=== PATIENT | female | born 1965 | race Caucasian/White ===

== ENCOUNTER 2019-08-17 07:36 | Day surgery (SDC) | payer BC ==
[2019-08-17] MEDS ORDERED: Lidocaine 1% with EPINEPHrine 1:100,000 10 ML MDV ONE (07:41)
[2019-08-17] MEDS ORDERED: Lactated Ringers 1,000 ML IV SCH (08:00)
--- NOTE | 2019-08-17 08:43 | PCM.PREANE ---
Preanesthetic Assessment - Anesthesia/Transfusion/Family Hx Anesthesia History: Prior Anesthesia Without Reaction Other Type of Anesthesia Reaction Comment: Deneis any known problems in past Family History of Anesthesia Reaction: No Transfusion History: No Prior Transfusion(s) Intubation History: Unknown - Review of Systems General: No Symptoms Pulmonary: No Symptoms Cardiovascular: No Symptoms Gastrointestinal: No Symptoms Neurological: No Symptoms Other: Reports: None - Physical Assessment Vital Signs: Last Vital Signs Temp 36.1 C 08/17/19 08:00 Pulse 76 08/17/19 08:00 Resp 16 08/17/19 08:00 BP 141/89 H 08/17/19 08:00 Pulse Ox 97 08/17/19 08:00 Height: 5 ft 4 in Weight: 73.936 kg ASA Class: 2 Mental Status: Alert & Oriented x3 Airway Class: Mallampati = 2 Dentition: Reports: Normal Dentition, Broken Tooth/Teeth (front upper incisor chipped) Thyro-Mental Finger Breadths: 3 Mouth Opening Finger Breadths: 2 ROM/Head Extension: Full Lungs: Clear to Auscultation, Normal Respiratory Effort Cardiovascular: Regular Rate, Regular Rhythm - Lab Values: Laboratory Last Values Urine HCG, Qual NEGATIVE (NEGATIVE) 08/17/19 08:00 - Allergies Allergies/Adverse Reactions: Allergies Allergy/AdvReac Type Severity Reaction Status Date / Time sulfamethoxazole Allergy Hives Verified 08/14/19 08:39 trimethoprim [From ] Allergy Hives Verified 08/14/19 08:39 - Blood Blood Available: No - Anesthesia Plan Pre-Op Medication Ordered: None - Acknowledgements Anesthesia Type Planned: MAC Pt an Appropriate Candidate for the Planned Anesthesia: Yes Alternatives and Risks of Anesthesia Discussed w Pt/Guardian: Yes Pt/Guardian Understands and Agrees with Anesthesia Plan: Yes PreAnesthesia Questionnaire HEENT History: Reports: None Cardiovascular History: Reports: Hypertension, Other (See Below) (borderline hypertrycerides) Respiratory History: Reports: None Gastrointestinal History: Reports: Colon Polyp Genitourinary History: Reports: None [employer]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 ulnar neuropathy) Psychiatric History: Reports: Other (See Below) Other Psychiatric History: "some anxiety at present" "going throught divorce" Endocrine/Metabolic History: Reports: Other (See Below) Other Endocrine/Metabolic History: hx: thyroid nodule Hematologic History: Reports: None Immunologic History: Reports: None Oncologic (Cancer) History: Reports: None Dermatologic History: Reports: None - Past Surgical History Head Surgeries/Procedures: Reports: None HEENT Surgical History: Reports: Tonsillectomy Cardiovascular Surgical History: Reports: None Respiratory Surgical History: Reports: None GI Surgical History: Reports: Colonoscopy Female Surgical History: Reports: Section Endocrine Surgical History: Reports: None Neurological Surgical History: Reports: None Musculoskeletal Surgical History: Reports: None Oncologic Surgical History: Reports: None Dermatological Surgical History: Reports: None - SUBSTANCE USE Smoking Status *Q: Never Smoker - HOME MEDS Home Medications: Home Meds Losartan Potassium 50 mg PO DAILY 08/14/19 [History] - CURRENT (IN HOUSE) MEDS Current Meds: Current Medications Lactated Ringer's (Ringers, Lactated) 1,000 mls @ 100 mls/hr IV ASDIRECTED [facility] Last Admin: 08/17/19 08:21 Dose: 100 mls/hr Discontinued Medications Lidocaine/Epinephrine (Xylocaine 1% With Epinephrine 1:100,000) Confirm Administered Dose 10 ml .ROUTE .STK-MED ONE Stop: 08/17/19 07:42
[2019-08-17] MEDS ORDERED: fentaNYL 100 MCG/2 ML SDV ONE (09:10)
[2019-08-17] MEDS ORDERED: Propofol 200 MG/20 ML SDV ONE (09:10)
[2019-08-17] MEDS ORDERED: Lidocaine 2% 5 ML SDV ONE (09:10)
[2019-08-17] MEDS ORDERED: Midazolam 1 MG/ML 2 ML SDV ONE (09:11)
[2019-08-17] MEDS ORDERED: Metoclopramide 10 MG/2 ML SDV ONE (09:32)
[2019-08-17] MEDS ORDERED: Dexamethasone 4 MG/ML 5 ML MDV ONE (09:32)
[2019-08-17] MEDS ORDERED: Ondansetron 4 MG/2 ML SDV ONE (09:32)
[2019-08-17] MEDS ORDERED: Ketorolac 30 MG/ML SDV ONE (09:43)
--- NOTE | 2019-08-17 10:03 | PCM.OPNOTE ---
- General Post-Op/Procedure Note Date of Surgery/Procedure: 08/17/19 Operative Procedure(s): Leep Pre Op Diagnosis: ASCUS Post-Op Diagnosis: Same Anesthesia Technique: General LMA Primary Surgeon: Merlin Stone EBL in mLs: 10 Complications: None Condition: Good
--- NOTE | 2019-08-17 10:03 | PCM.DCSUM1 ---
Discharge Summary - Hospital Course Diagnosis: Stroke: No - Discharge Data Discharge Date: 08/17/19 Discharge Disposition: Home, Self-Care 01 Condition: Good - Referral to Home Health Primary Care Physician: VICTOR HUGO Cantor - Patient Summary/Data Operative Procedure(s) Performed: Leep - Patient Instructions Diet: Usual Diet as Tolerated Activity: As Tolerated Driving: Do Not Drive Showering/Bathing: May Shower - Discharge Plan Home Medications: Home Meds Losartan Potassium 50 mg PO DAILY 08/14/19 [History] - Discharge Summary/Plan Comment DC Time >30 min.: Yes - General Info Date of Service: 08/17/19 Functional Status: Reports: Pain Controlled - Review of Systems General: Reports: No Symptoms HEENT: Reports: No Symptoms Pulmonary: Reports: No Symptoms Cardiovascular: Reports: No Symptoms Gastrointestinal: Reports: No Symptoms Genitourinary: Reports: No Symptoms Musculoskeletal: Reports: No Symptoms Skin: Reports: No Symptoms Neurological: Reports: No Symptoms Psychiatric: Reports: No Symptoms - Patient Data Vitals - Most Recent: Last Vital Signs Temp 36.1 C 08/17/19 08:00 Pulse 76 08/17/19 08:00 Resp 16 08/17/19 08:00 BP 141/89 H 08/17/19 08:00 Pulse Ox 97 08/17/19 08:00 Weight - Most Recent: 73.936 kg Lab Results - Last 24 hrs: Laboratory Results - last 24 hr 08/17/19 Range/Units 08:00 Urine HCG, Qual NEGATIVE (NEGATIVE) Med Orders - Current: Current Medications Lactated Ringer's (Ringers, Lactated) 1,000 mls @ 100 mls/hr IV ASDIRECTED [facility] Last Admin: 08/17/19 08:21 Dose: 100 mls/hr Discontinued Medications Dexamethasone (Dexamethasone) Confirm Administered Dose 20 mg .ROUTE .STK-MED ONE Stop: 08/17/19 09:33 Fentanyl (Sublimaze) Confirm Administered Dose 100 mcg .ROUTE .STK-MED ONE Stop: 08/17/19 09:11 Ketorolac Tromethamine (Toradol) Confirm Administered Dose 30 mg .ROUTE .STK- MED ONE Stop: 08/17/19 09:44 Lidocaine (Xylocaine-Mpf 2%) Confirm Administered Dose 5 ml .ROUTE .STK-MED ONE Stop: 08/17/19 09:11 Lidocaine/Epinephrine (Xylocaine 1% With Epinephrine 1:100,000) Confirm Administered Dose 10 ml .ROUTE .STK-MED ONE Stop: 08/17/19 07:42 Metoclopramide HCl (Reglan) Confirm Administered Dose 10 mg .ROUTE .STK-MED ONE Stop: 08/17/19 09:33 Midazolam HCl (Versed 1 Mg/Ml) Confirm Administered Dose 2 mg .ROUTE .STK-MED ONE Stop: 08/17/19 09:12 Ondansetron HCl (Zofran) Confirm Administered Dose 4 mg .ROUTE .STK-MED ONE Stop: 08/17/19 09:33 Propofol (Diprivan 20 Ml) Confirm Administered Dose 200 mg .ROUTE .STK-MED ONE Stop: 08/17/19 09:11 - Exam General: Reports: Alert, Oriented HEENT: Reports: Pupils Equal, Pupils Reactive, EOMI, Mucous Membr. Moist/Myrtle Neck: Reports: Supple Lungs: Reports: Clear to Auscultation, Normal Respiratory Effort Cardiovascular: Reports: Regular Rate, Regular Rhythm GI/Abdominal Exam: Normal Bowel Sounds, Soft, Non-Tender, No Organomegaly, No Distention, No Abnormal Bruit, No Mass, Pelvis Stable (Female) Exam: Normal External Exam, Normal Speculum Exam, Normal Bimanual Exam Rectal (Female) Exam: Normal Exam, Normal Rectal Tone Back Exam: Reports: Normal Inspection, Full Range of Motion Extremities: Normal Inspection, Normal Range of Motion, Non-Tender, No Pedal Edema, Normal Capillary Refill Skin: Reports: Warm, Dry, Intact Wound/Incisions: Reports: Healing Well Neurological: Reports: No New Focal Deficit Psy/Mental Status: Reports: Alert, Normal Affect, Normal Mood
--- NOTE | 2019-08-17 10:14 | PCM.POSTAN ---
POST ANESTHESIA ASSESSMENT - MENTAL STATUS Mental Status: Alert, Oriented - VITAL SIGNS Vital Signs: Last Vital Signs Temp 36.1 C 08/17/19 09:58 Pulse 79 08/17/19 10:10 Resp 10 L 08/17/19 10:10 BP 104/66 08/17/19 10:10 Pulse Ox 97 08/17/19 10:10 - RESPIRATORY Respiratory Status: Respiratory Rate WNL, Airway Patent, O2 Saturation Stable - CARDIOVASCULAR CV Status: Pulse Rate WNL, Blood Pressure Stable - GASTROINTESTINAL GI Status: No Symptoms - PAIN Pain Score: 0 - POST OP HYDRATION Hydration Status: Adequate & Stable
[2019-08-17 10:53] VITALS: PULSE 62
[2019-08-17 11:32] VITALS: BP 105/70
--- NOTE | 2019-08-17 11:36 | PCM48HPAN ---
Post Anesthesia Note - EVALUATION WITHIN 48HRS OF ANESTHETIC Vital Signs in Normal Range: Yes Patient Participated in Evaluation: Yes Respiratory Function Stable: Yes Airway Patent: Yes Cardiovascular Function Stable: Yes Hydration Status Stable: Yes Pain Control Satisfactory: Yes Nausea and Vomiting Control Satisfactory: Yes Mental Status Recovered: Yes Vital Signs: Last Vital Signs Temp 36.1 C 08/17/19 10:25 Pulse 62 08/17/19 11:10 Resp 18 08/17/19 11:10 BP 105/70 08/17/19 11:10 Pulse Ox 97 08/17/19 11:10 - COMMENTS/OBSERVATIONS Free Text/Narrative:: no anesthesia problems
--- NOTE | 2019-08-17 12:21 | OR ---
SURGEON: Merlin Stone MD DATE OF PROCEDURE: PREOPERATIVE DIAGNOSIS: Atypical squamous cells of undetermined significance with high-grade virus. POSTOPERATIVE DIAGNOSIS: Atypical squamous cells of undetermined significance with high-grade virus. OPERATION PERFORMED: Loop electrosurgical excision procedure, conization of the cervix. PRIMARY SURGEON: Merlin Stone MD. TIRE SPOTTER: None. ANESTHESIA: LMA, Carmita Harris and Dr. Gavin. ESTIMATED BLOOD LOSS: Less than 10 mL. COMPLICATIONS: None. PROCEDURE IN DETAIL: The patient was brought to the OR, properly identified. After adequate level of anesthesia, the patient was placed in lithotomy position, prepped and draped in sterile fashion as usual. Then, weighted speculum was placed in the vagina. An Allis clamp applied to the cervix at 3 and 9 o'clock to block the descending branch of the uterine artery and the cervix infiltrated with 1% Xylocaine with epi, and after that using a loop excision, cone biopsy is performed and sent for pathology and the base of the cone was cauterized with a ball cautery. The patient tolerated the procedure well, went to recovery room in stable general condition. ANDREW / LEYDI /[id number]
== END 2019-08-17 11:25 | disposition home or self-care (01) ==
LOC: MW.SDS 07:36
PROVIDERS: ATTEND Obstetrics & Gynecology
DX: N87.0 Mild cervical dysplasia (principal); I10 Essential (primary) hypertension; F41.9 Anxiety disorder, unspecified; Z88.2 Allergy status to sulfonamides; Z88.1 Allergy status to other antibiotic agents
CPT/HCPCS: 57522; 81025; J1100; J1885; J2001; J2250; J2405; J2704; J2765; J3010; J7120; 00940

== ENCOUNTER 2020-08-21 06:48 | Day surgery (SDC) | payer BC ==
[~2020-08-21 06:48] MED LIST: Lactated Ringers 1,000 ML IV SCH
[2020-08-21] MEDS ORDERED: fentaNYL 100 MCG/2 ML SDV ONE (07:02)
[2020-08-21] MEDS ORDERED: Midazolam 1 MG/ML 2 ML SDV ONE (07:02)
[2020-08-21] MEDS ORDERED: Propofol 200 MG/20 ML SDV ONE ×2 (07:02→09:11)
--- NOTE | 2020-08-21 07:34 | PCM.PREANE ---
Preanesthetic Assessment - Anesthesia/Transfusion/Family Hx Anesthesia History: Prior Anesthesia Without Reaction Other Type of Anesthesia Reaction Comment: Deneis any known problems in past Family History of Anesthesia Reaction: No Transfusion History: No Prior Transfusion(s) Intubation History: Unknown - Review of Systems General: No Symptoms Pulmonary: No Symptoms Cardiovascular: No Symptoms Gastrointestinal: No Symptoms, Other (family h/o colon cancer, personal h/o multiple polyps) Neurological: No Symptoms Other: Reports: None - Physical Assessment Height: 5 ft 4 in Weight: 69.853 kg ASA Class: 2 Mental Status: Alert & Oriented x3 Airway Class: Mallampati = 2 Dentition: Reports: Normal Dentition (loose tooth x1 bottom front, periodontal disease) Thyro-Mental Finger Breadths: 3 Mouth Opening Finger Breadths: 2 ROM/Head Extension: Full Lungs: Clear to Auscultation, Normal Respiratory Effort Cardiovascular: Regular Rate, Regular Rhythm - Allergies Allergies/Adverse Reactions: Allergies Allergy/AdvReac Type Severity Reaction Status Date / Time sulfamethoxazole Allergy Hives Verified 08/15/20 11:16 trimethoprim [From ] Allergy Hives Verified 08/15/20 11:16 - Blood Blood Available: No - Anesthesia Plan Pre-Op Medication Ordered: None - Acknowledgements Anesthesia Type Planned: MAC Pt an Appropriate Candidate for the Planned Anesthesia: Yes Alternatives and Risks of Anesthesia Discussed w Pt/Guardian: Yes Pt/Guardian Understands and Agrees with Anesthesia Plan: Yes PreAnesthesia Questionnaire HEENT History: Reports: None Cardiovascular History: Reports: High Cholesterol, Hypertension Respiratory History: Reports: None Gastrointestinal History: Reports: Colon Polyp (2010 6 polyps, 2014 no polyps) Genitourinary History: Reports: None [employer]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: Musculoskeletal History: Reports: None Neurological History: Reports: None Psychiatric History: Reports: Anxiety, Depression Endocrine/Metabolic History: Reports: Other (See Below) Other Endocrine/Metabolic History: hx: thyroid nodule Hematologic History: Reports: None Immunologic History: Reports: None Oncologic (Cancer) History: Reports: None Dermatologic History: Reports: None - Past Surgical History Head Surgeries/Procedures: Reports: None HEENT Surgical History: Reports: Tonsillectomy Cardiovascular Surgical History: Reports: None Respiratory Surgical History: Reports: None GI Surgical History: Reports: Colonoscopy (x2) Female Surgical History: Reports: Section Endocrine Surgical History: Reports: None Neurological Surgical History: Reports: None Musculoskeletal Surgical History: Reports: Arthroscopic Knee Other Musculoskeletal Surgeries/Procedures:: right meniscus repair Oncologic Surgical History: Reports: None Dermatological Surgical History: Reports: None - SUBSTANCE USE Tobacco Use Status *Q: Never Tobacco User - HOME MEDS Home Medications: Home Meds Losartan Potassium 50 mg PO DAILY 08/14/19 [History] Ascorbic Acid [Vitamin C] 1 tab.chew CHEW DAILY 08/15/20 [History] Cholecalciferol (Vitamin D3) [Vitamin D3] 1 tab.chew CHEW DAILY 08/15/20 [History] Diclofenac Sodium [Voltaren 1% Gel] 1 applic TOP ASDIRECTED PRN 08/15/20 [History] Multivitamin [Gummi Bear Multivitamin] 1 tab.chew CHEW DAILY 08/15/20 [History] Vitamin B Complex 1 tab.chew CHEW DAILY 08/15/20 [History] - CURRENT (IN HOUSE) MEDS Current Meds: Current Medications Lactated Ringer's (Ringers, Lactated) 1,000 mls @ 125 mls/hr IV ASDIRECTED [facility] Discontinued Medications Fentanyl (Sublimaze) Confirm Administered Dose 100 mcg .ROUTE .STK-MED ONE Stop: 08/21/20 07:03 Lidocaine HCl (Xylocaine-Mpf 1%) Confirm Administered Dose 5 ml .ROUTE .STK-MED ONE Stop: 08/21/20 07:03 Midazolam HCl (Versed 1 Mg/Ml) Confirm Administered Dose 2 mg .ROUTE .STK-MED ONE Stop: 08/21/20 07:03 Propofol (Diprivan 20 Ml) Confirm Administered Dose 200 mg .ROUTE .STK-MED ONE Stop: 08/21/20 07:03
[2020-08-21] MEDS ORDERED: Glycopyrrolate 0.2 MG/ML SDV ONE (09:05)
--- NOTE | 2020-08-21 09:38 | PCM.OPNOTE ---
- General Post-Op/Procedure Note Date of Surgery/Procedure: 08/21/20 Operative Procedure(s): colonoscopy Findings: see [id number] Pre Op Diagnosis: fam hx colon cancer Post-Op Diagnosis: Same Anesthesia Technique: Moderate Sedation Primary Surgeon: Mark Campbell Complications: None Condition: Good
--- NOTE | 2020-08-21 09:43 | PCM.POSTAN ---
POST ANESTHESIA ASSESSMENT - MENTAL STATUS Mental Status: Alert, Oriented - VITAL SIGNS Vital Signs: Last Vital Signs Temp 36.8 C 08/21/20 07:27 Pulse 71 08/21/20 09:40 Resp 12 08/21/20 09:40 BP 108/68 08/21/20 09:40 Pulse Ox 98 08/21/20 09:40 - RESPIRATORY Respiratory Status: Respiratory Rate WNL, Airway Patent, O2 Saturation Stable - CARDIOVASCULAR CV Status: Pulse Rate WNL, Blood Pressure Stable - GASTROINTESTINAL GI Status: No Symptoms - PAIN Pain Score: 0 - POST OP HYDRATION Hydration Status: Adequate & Stable - OBSERVATIONS Free Text/Narrative:: NO anesthesia problems
--- NOTE | 2020-08-21 10:14 | PCM48HPAN ---
Post Anesthesia Note - EVALUATION WITHIN 48HRS OF ANESTHETIC Vital Signs in Normal Range: Yes Patient Participated in Evaluation: Yes Respiratory Function Stable: Yes Airway Patent: Yes Cardiovascular Function Stable: Yes Hydration Status Stable: Yes Pain Control Satisfactory: Yes Nausea and Vomiting Control Satisfactory: Yes Mental Status Recovered: Yes Vital Signs: Last Vital Signs Temp 36.1 C 08/21/20 09:45 Pulse 70 08/21/20 09:45 Resp 15 08/21/20 09:45 BP 111/62 08/21/20 09:45 Pulse Ox 99 08/21/20 09:45 - COMMENTS/OBSERVATIONS Free Text/Narrative:: No anesthesia problems
[2020-08-21 10:56] VITALS: BP 114/69; PULSE 59
--- NOTE | 2020-08-21 10:57 | OR ---
SURGEON: Mark Campbell MD DATE OF PROCEDURE: 08/21/2020 PREOPERATIVE DIAGNOSES: Positive family history and positive colon polyp. PROCEDURE PERFORMED: Colonoscopy. PRIMARY SURGEON: Mark Campbell MD COMPLICATIONS: None. DESCRIPTION OF PROCEDURE: The patient was taken to the endoscopy room. A time out was called, patient identified, and procedure identified. Diprivan was then administrated. Patient went from awake to sleep, hearing doctor talking or door closing is normal. Perineum inspection and digital examination were then performed. A well- lubricated colonoscope was gently inserted through the rectum, advanced past the rectosigmoid junction, the descending colon, splenic flexure, transverse colon, hepatic flexure, ascending colon, arrived to the cecum. Cecum was identified as dictated in the finding. Then the scope was carefully withdrawn while attention was paid to the mucosal surface for any abnormality. Air will be sucked out during the scope withdrawal. At the rectum, retroflexed to examine any rectal diseases, fistula or hemorrhoids. Patient tolerated procedure well. There were no intraoperative complications, and Dr. Campbell was present throughout the whole procedure. FINDINGS: 1. The patient is easily sedated with TOP LOADER and Diprivan, the patient is soundly snoring. 2. Bowel prep is average and with some liquid stool, no semi-formed stool, no stool ball. 3. Colon is rather redundant at the sigmoid and very difficult to get to the cecum. Cecum indicated by ileocecal fold, one-to-one indentation, and appendiceal orifice. ScopeGuide is pointing south. Mucosa examined upon scope pulling out, and in order to get to the cecum, counter pressure had been used multiple times. The patient does not have diverticulosis, polyp, mass, growth, inflammation, stricture, AV malformation, bleeding, none of those. The patient has a very mild internal hemorrhoid, no external hemorrhoid. No fissure. No fistula. The patient would benefit from repeat colonoscopy in 3 years from today because of positive family history or if clinically indicated otherwise. CAROLYN / LEYDI /[id number]
== END 2020-08-21 10:20 | disposition home or self-care (01) ==
LOC: MW.SDS 06:48
PROVIDERS: ATTEND Surgery
DX: Z12.11 Encounter for screening for malignant neoplasm of colon (principal); K64.8 Other hemorrhoids; Q43.8 Other specified congenital malformations of intestine; I10 Essential (primary) hypertension; E78.00 Pure hypercholesterolemia, unspecified; Z88.8 Allergy status to other drugs, medicaments and biological substances; Z79.899 Other long term (current) drug therapy; Z98.890 Other specified postprocedural states; Z80.0 Family history of malignant neoplasm of digestive organs; Z86.010 Personal history of colon polyps; Z88.2 Allergy status to sulfonamides
CPT/HCPCS: 36415; 45378; 84703; J2001; J2250; J2704; J3010; J3490; J7120

== ENCOUNTER 2024-08-16 11:56 | Day surgery (SDC) | payer BC ==
[2024-08-16] MEDS: Lactated Ringers 1,000 ML IV SCH (12:25)
[2024-08-16] MEDS ORDERED: propofoL 500 MG/50 ML 50 ML ONE (13:47)
[2024-08-16 15:00] VITALS: BP 111/67; PULSE 61
== END 2024-08-16 15:15 | disposition home or self-care (01) ==
LOC: MW.SDS 11:56
PROVIDERS: ATTEND Surgery
DX: K64.8 Other hemorrhoids (principal); I10 Essential (primary) hypertension; E78.5 Hyperlipidemia, unspecified; F41.8 Other specified anxiety disorders
CPT/HCPCS: 45378; J2704; J7120